=== PATIENT | female | born 1995 | race Hispanic/Latino ===

== ENCOUNTER 2021-04-24 02:22 | Emergency (ER) | payer OTHER ==
[2021-04-24] MEDS ORDERED: FAMOTIDINE 20MG TAB PO ONE (03:00)
[2021-04-24] MEDS ORDERED: PANTOPRAZOLE 40 MG TAB DR PO ONE (03:00)
[2021-04-24 03:10] VITALS: BP 121/77
[2021-04-24] MEDS ORDERED: ONDA4TAB10 PO (03:40)
[2021-04-24] MEDS ORDERED: PANT40TA PO (03:40)
[2021-04-24] MEDS ORDERED: METO-296 PO (03:40)
== END 2021-04-24 03:53 | disposition home or self-care (01) ==
LOC: EDH 02:22
DX: R10.13 Epigastric pain (principal); Z20.822 Contact with and (suspected) exposure to COVID-19; Z88.0 Allergy status to penicillin; Z79.899 Other long term (current) drug therapy
CPT/HCPCS: 87635; 99283; C9803